=== PATIENT | male | born 1950 | race Caucasian/White ===

== ENCOUNTER 2020-04-29 01:59 | Outpatient (CLI) | payer OTHER, SELFPAY ==
[2020-04-29 17:23] LABS: SARS-CoV-2 RNA PCR Negative
== END 2020-04-29 02:00 | disposition home or self-care (01) ==
LOC: ANHCOVIDDT 01:59
PROVIDERS: PCP Family Medicine; Visit Provider Internal Medicine Gastroenterology
DX: Z01.812 Encounter for preprocedural laboratory examination (principal); Z20.822 Contact with and (suspected) exposure to COVID-19
CPT/HCPCS: C9803; U0003

== ENCOUNTER 2020-05-02 01:04 | Day surgery (SDC) | payer OTHER, SELFPAY ==
[2020-04-25 13:49] VITALS: BMI 30.2
[2020-05-02 06:39] VITALS: BP 153/99; PULSE 64; RESP 18; TEMP 36.4; O2SAT 98
[2020-05-02] MEDS: LACTATED RINGERS 1,000 ML 150 ML IV CONT (06:50)
--- NOTE | 2020-05-02 07:23 | WPDANESEPPF ---
Anes - Initial Pre Proc Eval Procedure: Operation Date: 05/02/20 08:00 Proposed Procedures p Screening Colonoscopy - Rashard Aquino MD Date/Time: 05/02/20 07:23 Surgeon: Rashard Aquino MD Pre Op Diagnosis: Neoplasm Screening Patient Data Age: 70 Gender: M Height: 5 ft 9.5 in Weight: 95.7 kg Last Vital Signs Temp 97.5 F L 05/02/20 06:39 Pulse 64 05/02/20 06:39 Resp 18 05/02/20 06:39 BP 153/99 H 05/02/20 06:39 Pulse Ox 98 05/02/20 06:39 Allergies Allergy/AdvReac Type Severity Reaction Status Date / Time codeine Allergy Intermediate dizziness, Verified 05/02/20 06:37 cold sweats, fever Home Medications Medication Instructions Recorded Confirmed Type amlodipine 5 mg tablet 5 mg PO DAILY #90 tablet 02/24/20 04/25/20 Rx ibuprofen 800 mg tablet 800 mg PO TID PRN #90 tablet 04/06/20 04/25/20 Rx Patient hx anesthesia problems: none Family hx anesthesia problems: none PMFSH Past Medical History Medical History (Updated 05/02/20 @ 07:23 by Rio Bowers MD) BMI 30.0-30.9,adult Essential (primary) hypertension Lumbar and sacral arthritis Surgical History Surgical History H/O knee surgery left tka - Dr fernandez right TKA - Dr. Fernandez Family History Family History Father Cerebrovascular accident Social History Social History Smoking status: Never smoker Second hand tobacco smoke exposure: No Alcohol intake: current Drinks per week: 5 Alcohol use details: BEERS Substance use: never Substance use type: does not use Living arrangements: with family Additional occupation/education comments: [employer] Gender identity (if verbalized by the patient): Male Spiritual care concerns: No Anes - Eval Final PreProcedure Day of Procedure 05/02/20 07:23 Patient weight: obese Heart: regular rate and rhythm Lungs: clear to auscultation Airway: Mallampati scale class II Neurological: alert and oriented Last oral intake: >/= 8 hours ASA classification: II Emergent: no Anesthetic plan: proceed Anesthesia type and monitoring: general GIVS and standard monitoring Informed Consent: The patient's anesthetic plan and its attendant risks and benefits were discussed with the patient/family/POA. Questions were solicited and answers provided to the satisfaction of the patient/family/POA.
--- NOTE | 2020-05-02 08:05 | PM.HPGS ---
History of Present Illness History of Present Illness Consent: Risks, benefits, and alternatives have been discussed and questions answered. Patient agrees to proceed with procedure. Chief complaint: Neoplasm Screening Narrative: Rio Roberto is a 70 year old male here for screening colonoscopy, last one 15 years ago. Review of Systems Constitutional: Constitutional: Denies headache(s) and Denies weakness Eyes: Eyes: Denies blurry vision ENT: Reports Normal hearing present, Denies headache(s) and Denies neck pain Cardiovascular: Cardiovascular: Denies chest pain and Denies dyspnea Respiratory: Respiratory: Denies dyspnea Gastrointestinal: Gastrointestinal: Reports no additional gastrointestinal complaints Genitourinary: Genitourinary: Denies dysuria Musculoskeletal: Musculoskeletal: Denies neck pain Integumentary/Breasts: Skin/Breast: Denies dry skin Neurologic: Reports Normal hearing present, Denies headache(s) and Denies weakness Psychiatric: Psychiatric: Denies anxiety Endocrine: Endocrine: Denies change in body appearance Hematologic/Lymphatic: Hematologic/Lymphatic: Denies easy bleeding Allergic/Immunologic: Allergic/Immunologic: Denies urticaria PMF Past Medical History Medical History (Updated 05/02/20 @ 08:06 by Rashard Aquino MD) BMI 30.0-30.9,adult Colon cancer screening Essential (primary) hypertension Lumbar and sacral arthritis Surgical History Surgical History H/O knee surgery left tka - Dr mccracken right TKA - Dr. Mccracken Family History Family History Father Cerebrovascular accident Social History Social History Smoking status: Never smoker Second hand tobacco smoke exposure: No Alcohol intake: current Drinks per week: 5 Alcohol use details: BEERS Substance use: never Substance use type: does not use Living arrangements: with family Additional occupation/education comments: [employer] Gender identity (if verbalized by the patient): Male Spiritual care concerns: No Meds Home Medications and Allergies Home Medications Medication Instructions Recorded Confirmed Type amlodipine 5 mg tablet 5 mg PO DAILY #90 tablet 02/24/20 04/25/20 Rx ibuprofen 800 mg tablet 800 mg PO TID PRN #90 tablet 04/06/20 04/25/20 Rx Allergies Allergy/AdvReac Type Severity Reaction Status Date / Time codeine Allergy Intermediate dizziness, Verified 05/02/20 06:37 cold sweats, fever Vital Signs Vital Signs - 24 hr 05/02/20 06:39 Temperature 97.5 F L Pulse Rate 64 Respiratory Rate 18 Blood Pressure 153/99 H Pulse Oximetry 98 Exam Const: General: comfortable and no acute distress HENMT: General nose exam: Normal nares present Eyes: General: appearance normal, both eyes and all related structures Neck: Neck: no JVD Resp: Auscultation: clear to auscultation bilaterally Cardio: Rate: regular rate Rhythm: regular rhythm GI: Inspection: non-distended GI Palp: Yes Soft to palpation Skin: General skin exam: normal color Neuro: General: gait normal Speech: normal speech Extrem: General: normal to inspection Psych: Mental Status: mental status grossly normal Assessment and Plan Assessment and plan (1) Colon cancer screening: Code(s): Z12.11 - Encounter for screening for malignant neoplasm of colon Status: Acute Assessment and Plan: will proceed with colonoscopy
[2020-05-02 08:25] VITALS: BP 126/78; PULSE 67; RESP 19; O2SAT 98
[2020-05-02 08:35] VITALS: BP 119/83; PULSE 64; RESP 22; O2SAT 96
[2020-05-02 08:45] VITALS: BP 122/81; PULSE 60; RESP 23; O2SAT 98
== END 2020-05-02 09:13 | disposition home or self-care (01) ==
PROVIDERS: PCP Family Medicine; Visit Provider Internal Medicine Gastroenterology
PROC: 0DJD8ZZ Inspection of Lower Intestinal Tract, Via Natural or Artificial Opening Endoscopic (ICD-10-PCS; CPT 45378; principal; 2020-05-02 08:00)
DX: Z12.11 Encounter for screening for malignant neoplasm of colon (principal); K63.5 Polyp of colon; K57.30 Diverticulosis of large intestine without perforation or abscess without bleeding; K62.1 Rectal polyp; K64.8 Other hemorrhoids; I10 Essential (primary) hypertension; M47.817 Spondylosis without myelopathy or radiculopathy, lumbosacral region; F17.210 Nicotine dependence, cigarettes, uncomplicated; E66.9 Obesity, unspecified; Z68.30 Body mass index [BMI] 30.0-30.9, adult
CPT/HCPCS: 45385; 88305; C9803; J2704; J7120; U0003

== ENCOUNTER → 2021-06-06 14:58 | Outpatient (REF) | payer OTHER, SELFPAY | LOC: ANHLAB 14:58 | PROVIDERS: PCP Family Medicine; Visit Provider Nurse Practitioner | DX: C44.321 Squamous cell carcinoma of skin of nose (principal) | CPT/HCPCS: 88305; 88342 ==

== ENCOUNTER → 2021-07-17 09:58 | Outpatient (REF) | payer OTHER, SELFPAY | LOC: ANHLAB 09:58 | PROVIDERS: PCP Family Medicine; Visit Provider Nurse Practitioner | DX: C44.311 Basal cell carcinoma of skin of nose (principal) | CPT/HCPCS: 88305; 88331 ==

== ENCOUNTER 2022-01-08 09:00 | Outpatient (NON) | payer OTHER, SELFPAY | END 2022-01-08 09:01 | disposition home or self-care (01) | LOC: ANHLAB 01-10 13:05 | PROVIDERS: PCP Nurse Practitioner; Visit Provider Nurse Practitioner | DX: C44.41 Basal cell carcinoma of skin of scalp and neck (principal) | CPT/HCPCS: 88305 ==

== ENCOUNTER 2022-01-29 11:23 | Outpatient (CLI) | payer OTHER, SELFPAY | END 2022-02-06 11:02 | disposition home or self-care (01) | PROVIDERS: PCP Nurse Practitioner; Visit Provider Nurse Practitioner | DX: C44.41 Basal cell carcinoma of skin of scalp and neck (principal) | CPT/HCPCS: 88305; 88331 ==

== ENCOUNTER → 2022-12-12 12:13 | Outpatient (CLI) | payer OTHER, SELFPAY ==
--- NOTE | ~2022-12-12 | XR_ITS ---
XR wrist LT min 3V DATE: 12/12/2022 12:35 INDICATION: Left wrist pain TECHNIQUE: 4 views COMPARISON: None FINDINGS: There is severe osteoarthritic change at the articulation of the radius and ulna with the l unate bone with complete obliteration of joint space at the radial lunate joint, severe joint space n arrowing and vacuum phenomenon and eburnation at the ulnar-lunate joint. There are prominent degenera tive cysts of the distal radius and ulna. Degenerative cysts of the navicular, lunate and triquetrum is noted. There is osteophytic change at the triscaphe, triquetrum-pisiform and first carpometacarpal joints in addition to the first metacarpophalangeal and multiple interphalangeal joints. No fracture or dislocation, periosteal reaction or bone destruction. 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 IMPRESSION: Polyarticular osteoarthritis particularly at the articulation of th e radius and ulna with lunate bone
== END ==
PROVIDERS: PCP Family Medicine; Visit Provider Family Medicine
DX: M19.032 Primary osteoarthritis, left wrist (principal)
CPT/HCPCS: 73110

== ENCOUNTER 2023-02-21 14:03 | Outpatient (NON) | payer OTHER, SELFPAY | END 2023-02-21 14:04 | disposition home or self-care (01) | LOC: ANHLAB 14:04 | PROVIDERS: PCP Family Medicine; Visit Provider Nurse Practitioner | DX: L72.0 Epidermal cyst (principal) | CPT/HCPCS: 88304 ==